=== PATIENT | female | born 1950 | race Caucasian/White ===

== ENCOUNTER 2018-01-08 07:46 | Day surgery (SDC) | payer MEDICARE, OTHER ==
[~2018-01-08 07:46] MED LIST: ACETAMINOPHEN 1,000 MG/100 ML BTL IV ONE; CELECOXIB 100 MG CAPSULE PO ONE; FAMOTIDINE 20MG TABLET PO ONE; MECLIZINE 25 MG TABLET PO ONE; METOCLOPRAMIDE 10 MG TABLET PO ONE; VANCOMYCIN HCL 1,000 MG in DEXTROSE 5 % IN WATER 250 ML IVPB ONE
[2018-01-08] MEDS ORDERED: DEXAMETHASONE 4 MG/ML 1ML VIAL IVP ONE (07:47)
[2018-01-08] MEDS ORDERED: VANCOMYCIN HCL 1 GM VIAL IVPB ONE ×2 (07:47)
[2018-01-08] MEDS ORDERED: BUPIVACAINE LIPOSOME 266MG/20ML VIAL IV ONE (07:47)
[2018-01-08] MEDS ORDERED: BUPIVACAINE 0.5% W/EPI MPF 30 ML VIAL IVP ONE (07:47)
[2018-01-08] MEDS ORDERED: PROPOFOL 10 MG/ML VIAL IV ONE (07:47)
[2018-01-08] MEDS ORDERED: MIDAZOLAM HCL 2MG/2ML VIAL IV ONE (07:47)
[2018-01-08] MEDS ORDERED: ONDANSETRON HCL IV 4 MG/2 ML VIAL IVP ONE (07:47)
[2018-01-08] MEDS ORDERED: LIDOCAINE 2% MDV (20MG/ML) 20ML VIAL IV ONE (07:47)
[2018-01-08] MEDS ORDERED: SCOPOLAMINE 1 PATCH TDSY TD ONE (07:47)
[2018-01-08] MEDS ORDERED: ROPIVACAINE HCL (NAROPIN) /PF 5MG/ML 20ML VIAL IV ONE (07:47)
[2018-01-08] MEDS ORDERED: TRANEXAMIC ACID 1,000 MG/10 ML ML IV ONE ×2 (07:47)
[2018-01-08 08:47] LABS: ABO GROUP A; ANTIBODY SCREEN NEGATIVE (NEGATIVE); RH TYPE NEGATIVE
[2018-01-08] MEDS ORDERED: HYDROCODONE/APAP 7.5/325MG TABLET PO PRN ×2 (09:51)
[2018-01-08] MEDS ORDERED: ACETAMINOPHEN W/ CODEINE 300MG/30MG TABLET PO PRN ×2 (09:51)
[2018-01-08] MEDS ORDERED: MAGNESIUM HYDROXIDE 30 ML UDC PO PRN (09:51)
[2018-01-08] MEDS ORDERED: KETOROLAC 30 MG/ML VIAL IVP PRN ×2 (09:51)
[2018-01-08] MEDS ORDERED: METOCLOPRAMIDE 10 MG TABLET PO PRN (09:51)
[2018-01-08] MEDS ORDERED: NALOXONE 0.4 MG/1 ML VIAL IVP PRN (09:51)
[2018-01-08] MEDS ORDERED: PROMETHAZINE HCL 25 MG TABLET PO PRN (09:51)
[2018-01-08] MEDS ORDERED: HYDROCODONE/APAP 5/325MG TABLET PO PRN ×2 (09:51)
[2018-01-08] MEDS ORDERED: ACETAMINOPHEN 325 MG TAB PO PRN (09:51)
[2018-01-08] MEDS ORDERED: TRAMADOL HCL 50 MG TABLET PO PRN ×2 (09:51)
[2018-01-08] MEDS ORDERED: ACETAMINOPHEN W/ CODEINE 300MG/60MG TABLET PO PRN ×2 (09:51)
[2018-01-08] MEDS ORDERED: ONDANSETRON 4 MG ODT TABLET SL PRN (09:51)
[2018-01-08] MEDS ORDERED: AL HYDROX/MAG HYDROX 30ML UD PO PRN (09:51)
[2018-01-08] MEDS ORDERED: DIPHENHYDRAMINE HCL 25 MG CAPSULE PO PRN (09:51)
[2018-01-08] MEDS ORDERED: BISACODYL 10 MG SUPP RC PRN (09:51)
[2018-01-08] MEDS ORDERED: DOCUSATE SODIUM 100 MG CAPSULE PO SCH (10:00)
[2018-01-08] MEDS ORDERED: DEXTROSE 5 % AND 0.9 % NACL 1,000 ML IV PRN (12:30)
[2018-01-08] MEDS ORDERED: VANCOMYCIN HCL 500 MG in 0.9 % SODIUM CHLORIDE 100ML 100 ML IVPB SCH (13:00)
--- NOTE | 2018-01-08 14:04 | Rehab Evaluation ---
Patient Information - Patient Information Diagnosis: L knee OA Ordered Treatment: PT Evaluate and Treat Status: Initial Evaluation Surgery: Yes (L TKA) Date of Surgery: 01/08/18 Past Medical/Surgical Hx: PAST MEDICAL/SURGICAL HISTORY Past Surgical History tonsils hyst LTHA RTKA 2009 PMH - Respiratory Hx Respiratory Disorders No PMH - Cardiovascular Hx Cardiovascular Disorders Yes Hx Abnormal EKG Yes: 6 years ago saw cardio had negative work up Exercise Tolerance Good PMH - Neuro Hx Neurological Disorders No PMH - GI Hx Gastrointestinal Disorders No PMH - Hx Genitourinary Disorders No PMH - Endocrine Hx Endocrine Disorders Yes Hx Diabetes Yes: dx'd 2011 Hx Thyroid Disease Yes Hx of NIDDM Yes: on metformin Comment: A1C 7 or below. checks blood sugar 1x wk 140- 150 PMH - Musculoskeletal Hx Musculoskeletal Disorders Yes Hx Arthritis Yes: left knee PMH - Psych Hx Psychiatric Problems No PMH - Hematology/Oncology Hx Hematology/Oncology Yes Disorders Hx Cancer Yes: skin cancer leg Premorbid Status: Detail (Patient was previously IND with all mobility and transfers.) Social History: Detail (Patient lives alone in a one story home with 2 steps to enter with one hand rail on the left. The patient has a walk in shower, and an elevated toilet. The patient currently owns a shower bench and front wheeled walker.) Precautions: [place], Fall, Other (WBAT on L LE.) - Time With Patient Total Time Spent With Patient (Min): 30 Treatment Procedures: Detail (Initial evaluation, gait training, and exercise education.) Subjective Information - Subjective Information Per Patient (Patient was lying supine in bed upon arrival. Patient reported 8/ 10 L knee pain.) Objective Data - Pain Pain Present: Yes Pain Intensity: 8 - Mental Status Patient Orientation: Oriented x3 - Visual Perception Appears within normal limits for therapeutic activities - ROM Not within normal limits (L knee ROM limited due to status post surgery.) - Strength/Tone Not within normal limits (Patient has functional strength during ambulation. L LE strength is limited due to status post surgery.) - Bed Mobility Independent (Patient is IND with supine to sit transfer.) - Transfers Independent (Patient is IND with sit to stand transfer.) - Balance Balance Sitting: Good Balance Standing: Good - Sensation Intact - Gait Detail (Patient ambulated 100' using a front wheeled walker and supervision for safety. Patient also ambulated a flight of 3 stairs with a folded walker, hand rail, and supervision for safety. Patient required education on proper stair technique. WBAT on L LE.) Therapy Assessment - Therapy Assessment Detail (Evaluation complexity was low due to stable condition. Patient is IND with all mobility and transfers. Patient has met all IP PT goals. Feel patient will progress well with continued PT. Patient was left lying supine in bed with call light in reach.) Patient Education - Patient Education Teaching Topic: Exercise/Activity (Ankle pumps, quad sets, hamstring sets, glut sets, heel slides, SLR.) Response: Return Demonstration, Verbalize Understanding Teaching Method: Discussion, Demonstration Teaching Recipient: Patient Barriers To Learning: Age Related Problem List - Problem List Physical Therapy Problem List: Detail (1) L knee ROM 2) L knee strength 3) Pain) Goals - Goals Physical Therapy Goals: Patient has met all IP PT goals. Prognosis - Prognosis Good Plan - Plan Physical Therapy Plan: Patient has met all IP PT goals and will be discharged to home PT.
--- NOTE | 2018-01-08 15:35 | Rehab Evaluation ---
Patient Information - Patient Information Diagnosis: L knee OA Ordered Treatment: OT Evaluate and Treat Status: Initial Evaluation Surgery: Yes (L TKA) Date of Surgery: 01/08/18 Past Medical/Surgical Hx: PAST MEDICAL/SURGICAL HISTORY Past Surgical History tonsils hyst LTHA RTKA 2009 PMH - Respiratory Hx Respiratory Disorders No PMH - Cardiovascular Hx Cardiovascular Disorders Yes Hx Abnormal EKG Yes: 6 years ago saw cardio had negative work up Exercise Tolerance Good PMH - Neuro Hx Neurological Disorders No PMH - GI Hx Gastrointestinal Disorders No PMH - Hx Genitourinary Disorders No PMH - Endocrine Hx Endocrine Disorders Yes Hx Diabetes Yes: dx'd 2011 Hx Thyroid Disease Yes Hx of NIDDM Yes: on metformin Comment: A1C 7 or below. checks blood sugar 1x wk 140- 150 PMH - Musculoskeletal Hx Musculoskeletal Disorders Yes Hx Arthritis Yes: left knee PMH - Psych Hx Psychiatric Problems No PMH - Hematology/Oncology Hx Hematology/Oncology Yes Disorders Hx Cancer Yes: skin cancer leg Premorbid Status: Detail (Patient was previously IND with all mobility, transfers and ADLs.) Social History: Detail (Patient lives alone in a one story home with 2 steps to enter with one hand rail on the left. The patient has a walk in shower, and an elevated toilet. The patient currently owns a shower bench, hand held shower head and front wheeled walker.) Precautions: [place], Fall, Other (WBAT on L LE.) - Time With Patient Total Time Spent With Patient (Min): 20 Treatment Procedures: Detail (OT eval LOW) Subjective Information - Subjective Information Per Patient (Patient has supportive friends that will be available to assist as needed at home. One friend will be staying the night with her tonight.) Objective Data - Pain Pain Present: Yes Pain Intensity: 8 (back of L knee) Pain Scale Used: Numeric (1 - 10) - Mental Status Patient Orientation: Oriented x3 - Visual Perception Appears within normal limits for therapeutic activities - ROM Within normal limits (BUE's) - Strength/Tone Within normal limits (BUE's) - Coordination Appears within normal limits for therapeutic activities - Bed Mobility Independent - Transfers Independent (Sit<>stand w/ 2WW) - Balance Balance Sitting: Good - Gait Detail (Refer to PT note) - ADL's/IADL's Detail (Pt was instructed on and demonstrated understanding of modified drsg technique. She was able to complete all LB and UB drsg without ADL equipment. Pt able to don shoes but will need assistance with tying shoe laces. Patient states she has very supportive friends that she can call on if needed. Pt able to verbalize wrapping technique to prevent water saturation on knee during showering.) Therapy Assessment - Therapy Assessment Detail (Pt is independent and safe with all drsg and is able to verbalize wrapping technique during showering. She will have assistance available if needed.) Patient Education - Patient Education Teaching Topic: Other (modified drsg technique) Response: Return Demonstration Teaching Method: Discussion Teaching Recipient: Patient, Other (2 friends present in room) Problem List - Problem List Physical Therapy Problem List: Detail (1) L knee ROM 2) L knee strength) Goals - Goals Physical Therapy Goals: Patient has met all IP PT goals. Prognosis - Prognosis Good Plan - Plan Physical Therapy Plan: Patient has met all IP PT goals and will be discharged to home PT. Occupational Therapy Plan: No further inpatient OT needed at this time. Pt to be d/c'd from OT.
[2018-01-09] MEDS ORDERED: VANCOMYCIN HCL 1,000 MG in DEXTROSE 5 % IN WATER 250 ML IVPB ONE ×2 (06:00)
[2018-01-09] MEDS ORDERED: FAMOTIDINE 20MG TABLET PO ONE (06:00)
[2018-01-09] MEDS ORDERED: ACETAMINOPHEN 1,000 MG/100 ML BTL IV ONE (06:00)
[2018-01-09] MEDS ORDERED: CELECOXIB 100 MG CAPSULE PO ONE (06:00)
[2018-01-09] MEDS ORDERED: METOCLOPRAMIDE 10 MG TABLET PO ONE (06:00)
[2018-01-09] MEDS ORDERED: MECLIZINE 25 MG TABLET PO ONE (06:00)
--- NOTE | 2018-01-11 21:17 | Operative Note ---
DATE OF SURGERY: 01/08/2018 PREOPERATIVE DIAGNOSIS: End-stage left knee arthrosis. POSTOPERATIVE DIAGNOSIS: End-stage left knee arthrosis. PROCEDURE: Left total knee arthroplasty. SURGEON: Jameel Hudson M.D. ANESTHESIA: Spinal, Tripp Santoro CRNA. COMPLICATIONS: None. BLOOD LOSS: Minimal. TOURNIQUET TIME: Approximately 60 minutes. OPERATIVE FINDINGS: [id number] arthrosis. COMPONENTS PLACED: [employer] II Oxinium total knee arthroplasty system size 5 femoral component, size 4 tibial baseplate, a 9 mm thick tibial poly insert, and a 32 mm cemented patellar component. INDICATIONS FOR OPERATION: This is a 67-year-old female well known to myself. She is status post right knee arthroplasty done years ago and no is scheduled for the left. I explained the risks and benefits to her in detail for her diagnosis and procedures including but not limited to infection, nerve injury, vessel injury, persistent pain, persistent numbness and tingling in her knee, periprosthetic fracture, need for resection arthroplasty should the components become infected or loosened, nerve injury, vessel injury, blood clot, need for anticoagulation to prevent blood clots and the risks associated with these medications and need for further procedures and all of her questions were answered. The rehab and course were outlined and she agreed to proceed. PROCEDURE: The patient was brought to the O.R. and placed in the supine position for the proper surgery. Spinal anesthesia was induced and the left lower extremity and knee were prepped and draped in sterile fashion. The left knee was prepped again with ChloraPrep after it was draped. Intraoperative time- out was performed. Next, the knee was injected with 0.5% Marcaine with Epinephrine over the incision site. The knee was flexed and the tourniquet inflated to 215 mmHg pressure after exsanguination. The skin and subcutaneous tissue were dissected down. I incised the capsule medially around the medial border of the of the patella to the tibial tubercle. I incised the vastus medialis in line with the fibers in a mid vastus approach, and partially resected the retropatellar fat pad, everted the patella. I flexed the knee. She had [id number] arthrosis, predominately medially. We drilled the intercondylar drill hole, inserted the intramedullary guide ryan, aligned it with the distal femoral condyles and pinned it in +2 mm position, and cut the distal femoral condyle. We placed the sizing jig on the distal femoral condyle and sized it to be right on size 5. Through the previously placed pinholes, we placed the 5-in-1 cutting jig. We dialed in the anterior cut so it would come out flush without notching. We cut that cut. It was a good cut and then pined the cutting jig and cut the remainder of the cuts in the usual fashion. Next, we placed the size 5 trial component, centered it, pinned it, and box osteotomed the cruciate bone block. Attention was turned to the tibia. We seated the spikes in the intertubercular groove, aligned the tibial axis off the central third of the tibial tubercle. We referenced for a 7 mm cut off the higher lateral plateau and we pinned it in place provisionally with two anterior and posterior pins. We then rechecked alignment with a drop ryan seating the cutting jig flush and cross-pinned it completing its fixation and cut the tibia. We removed osteophytes off the posterior femoral condyles, checked flexion and extension gaps. These were symmetric with a 9 mm thick poly inserted with 2 to 3 mm of varus/valgus laxity. Overall alignment of cuts in extension was in anatomic alignment with the alignment ryan centered on the hip joint and the ankle joint. We took the knee into flexion. We sized the tibial baseplate to be a size 4. We replaced all trial components. Set the rotation of the tibial baseplate again off the alignment ryan of the hip joint and the ankle joint. We marked with electrocautery beth on the anterior tibial cortex off the laser beth on the tibial baseplate. Attention was turned to the patella. We measured the patella. We set the cutting jig to allow for a 9 mm thick poly insert. We cut the patella and then remeasured. It was right on 13 to 14. We sized it to be 32. We medialized as much as possible. We drilled the three peg holes. We mixed cement. We did a trial range of motion. The patella tracked nicely hands-free. Again, symmetric flexion and extension gaps in full motion. We took the knee into flexion, seated the tibial baseplate off the previously placed electrocautery beth, pinned it in place, and drilled out and keel- punched the keel hole. We changed gloves, copiously irrigated the bony surfaces with pulse lavage and antibiotic solution. We placed a bone plug in the femoral canal hole. We placed the drill in the tibial keel hole and then pre-coated both surfaces and impacted down the tibial component and then the femoral component, and then placed the trial tibial poly liner and held the knee in extension. We clamped down the patellar component until the cement started hardening. We removed excess cement as we went. We took the knee into flexion. We distracted the knee with bone hook and sponge, injected around the periphery, deep capsule, medial and lateral, periosteum and working out superficially with our 0.5% Marcaine with Epinephrine, 2 grams of tranexamic acid, and Exparel mixture. Next, we irrigated copiously. We inserted the real tibial poly insert and verified it was interlocked. Final range of motion revealed the same. We irrigated again. We closed in flexion with running #2 Quill suture. We injected the subcutaneous with 0.5% Marcaine with Epinephrine. We closed the skin with #2 -0 Vicryl. Temporary dressing of Acticoat will be changed to CRISTOBAL prior to discharge. cc: Primary in [place] JOB NUMBER: [id number] [facility]
== END 2018-01-08 16:56 | disposition home health service (06) ==
LOC: SUR 07:46 → MEDSURG 12:48 → SUR 16:56
PROVIDERS: ATTEND Orthopaedic Surgery
DX: M17.12 Unilateral primary osteoarthritis, left knee (principal); E11.9 Type 2 diabetes mellitus without complications
CPT/HCPCS: 27447; 01402; 64447; 86900; 86901; 86850; 76942; J2405; J3370; C9290; J3490; J2795; G8978; G8979; G8980; G8987; G8988; G8989; 93005; J7060